=== PATIENT | female | born 1980 | race American Indian/Alaskan Native ===

== ENCOUNTER 2020-02-06 16:47 | Emergency (ER) | payer MEDICAID ==
[2020-02-06 17:21] VITALS: BP 139/90
[2020-02-06] MEDS ORDERED: KETOROLAC 60 MG/2 ML INJ IM STA (19:40)
--- NOTE | 2020-02-06 19:48 | Emergency Department Report ---
ED ENT HPI - General Chief complaint: Dental/Oral Stated complaint: TOOTHACHE Time Seen by Provider: 02/06/20 19:36 Source: patient Mode of arrival: Ambulatory Limitations: No Limitations - History of Present Illness MD complaint: tooth pain -: Gradual Severity: moderate Quality: dull Improves with: none Worsens with: none Context- Dental: history of dental caries, poor dental care Associated Symptoms: toothache - Related Data Previous Rx's Medication Instructions Recorded Last Taken Type Acetaminophen/Codeine [Tylenol 1 tab PO Q6H PRN #12 tab 08/31/19 Unknown Rx /Codeine # 3 tab] Amoxicillin/Potassium Clav 1 each PO Q12H #20 tablet 08/31/19 Unknown Rx [Augmentin 875-125 Tablet] Ketorolac [Toradol] 10 mg PO Q8H PRN #20 tablet 08/31/19 Unknown Rx Naproxen [Naprosyn TAB] 500 mg PO BID #20 tablet 01/18/20 Unknown Rx Penicillin V Potassium 500 mg PO Q6HR #40 tablet 01/18/20 Unknown Rx Amoxicillin [Amoxicillin TAB] 875 mg PO BID #20 tablet 02/06/20 Unknown Rx Chlorhexidine Mouthwash [Peridex] 15 ml MM BID #1 bottle 02/06/20 Unknown Rx Ketorolac [Toradol] 10 mg PO Q6H PRN #15 tablet 02/06/20 Unknown Rx Lidocaine Viscous 2% 5 ml MM Q3H PRN #120 udc 02/06/20 Unknown Rx Allergies Allergy/AdvReac Type Severity Reaction Status Date / Time No Known Allergies Allergy Verified 01/18/20 11:14 ED Dental HPI - General Chief complaint: Dental/Oral Stated complaint: TOOTHACHE Time Seen by Provider: 02/06/20 19:36 Source: patient Mode of arrival: Ambulatory Limitations: No Limitations - Related Data Previous Rx's Medication Instructions Recorded Last Taken Type Acetaminophen/Codeine [Tylenol 1 tab PO Q6H PRN #12 tab 08/31/19 Unknown Rx /Codeine # 3 tab] Amoxicillin/Potassium Clav 1 each PO Q12H #20 tablet 08/31/19 Unknown Rx [Augmentin 875-125 Tablet] Ketorolac [Toradol] 10 mg PO Q8H PRN #20 tablet 08/31/19 Unknown Rx Naproxen [Naprosyn TAB] 500 mg PO BID #20 tablet 01/18/20 Unknown Rx Penicillin V Potassium 500 mg PO Q6HR #40 tablet 01/18/20 Unknown Rx Amoxicillin [Amoxicillin TAB] 875 mg PO BID #20 tablet 02/06/20 Unknown Rx Chlorhexidine Mouthwash [Peridex] 15 ml MM BID #1 bottle 02/06/20 Unknown Rx Ketorolac [Toradol] 10 mg PO Q6H PRN #15 tablet 02/06/20 Unknown Rx Lidocaine Viscous 2% 5 ml MM Q3H PRN #120 udc 02/06/20 Unknown Rx Allergies Allergy/AdvReac Type Severity Reaction Status Date / Time No Known Allergies Allergy Verified 01/18/20 11:14 ED Review of Systems ROS: Stated complaint: TOOTHACHE Other details as noted in HPI Comment: All other systems reviewed and negative ED Past Medical Hx - Past Medical History Previous Medical History?: No - Surgical History Past Surgical History?: No - Social History Smoking Status: Never Smoker - Medications Home Medications: Home Medications Medication Instructions Recorded Confirmed Last Taken Type Acetaminophen/Codeine [Tylenol 1 tab PO Q6H PRN #12 tab 08/31/19 Unknown Rx /Codeine # 3 tab] Amoxicillin/Potassium Clav 1 each PO Q12H #20 tablet 08/31/19 Unknown Rx [Augmentin 875-125 Tablet] Ketorolac [Toradol] 10 mg PO Q8H PRN #20 tablet 08/31/19 Unknown Rx Naproxen [Naprosyn TAB] 500 mg PO BID #20 tablet 01/18/20 Unknown Rx Penicillin V Potassium 500 mg PO Q6HR #40 tablet 01/18/20 Unknown Rx Amoxicillin [Amoxicillin TAB] 875 mg PO BID #20 tablet 02/06/20 Unknown Rx Chlorhexidine Mouthwash [Peridex] 15 ml MM BID #1 bottle 02/06/20 Unknown Rx Ketorolac [Toradol] 10 mg PO Q6H PRN #15 tablet 02/06/20 Unknown Rx Lidocaine Viscous 2% 5 ml MM Q3H PRN #120 udc 02/06/20 Unknown Rx ED Physical Exam - General Limitations: No Limitations General appearance: alert, in no apparent distress - Head Head exam: Present: atraumatic, normocephalic - Eye Eye exam: Present: normal appearance - ENT ENT exam: Present: mucous membranes moist, other (Tenderness to the lower dentition around tooth #29 and 30 with moderate dental caries and some adjacent gingival erythema and mild swelling. Tongue and uvula are midline airways patent. No exudate noted.) - Neck Neck exam: Present: normal inspection - Respiratory Respiratory exam: Present: normal lung sounds bilaterally. Absent: respiratory distress - Cardiovascular Cardiovascular Exam: Present: regular rate, normal rhythm. Absent: systolic murmur, diastolic murmur, rubs, gallop - GI/Abdominal GI/Abdominal exam: Present: soft, normal bowel sounds - Extremities Exam Extremities exam: Present: normal inspection - Back Exam Back exam: Present: normal inspection - Neurological Exam Neurological exam: Present: alert, oriented X3 - Psychiatric Psychiatric exam: Present: normal affect, normal mood - Skin Skin exam: Present: warm, dry, intact, normal color. Absent: rash ED Course Vital Signs 02/06/20 17:20 Temperature 98.5 F Pulse Rate 82 Respiratory 20 Rate Blood Pressure 139/90 O2 Sat by Pulse 100 Oximetry ED Medical Decision Making - Medical Decision Making 39-year-old female with an evolving dental infection secondary to an infected dental carry. Plan is to treat with antimicrobial mouthwash and analgesic medication control. Critical care attestation.: If time is entered above; I have spent that time in minutes in the direct care of this critically ill patient, excluding procedure time. ED Disposition Clinical Impression: Infected dental carries Disposition: DC-01 TO HOME OR SELFCARE Is pt being admited?: No Does the pt Need Aspirin: No Condition: Stable Instructions: Toothache (ED), Dental Caries (ED), Dental Abscess (ED) Referrals: PRIMARY CARE, [Primary Care Provider] - 3-5 Days [facility] [Outside] - 3-5 Days
== END 2020-02-06 20:08 | disposition home or self-care (01) ==
LOC: ED 16:47
DX: K02.9 Dental caries, unspecified (principal); Z79.899 Other long term (current) drug therapy
CPT/HCPCS: 96372; 99282; J1885

== ENCOUNTER 2021-02-15 10:14 | Emergency (ER) | payer MEDICAID ==
[2021-02-15 10:33] VITALS: BP 132/82
--- NOTE | 2021-02-15 10:51 | Emergency Department Report ---
ED ENT HPI - General Chief complaint: Dental/Oral Stated complaint: RT EAR/THROAT PAIN Time Seen by Provider: 02/15/21 10:37 Source: patient Mode of arrival: Ambulatory Limitations: No Limitations - History of Present Illness Initial comments: Is a pleasant 40-year-old female presents the emergency department chief complaint of sore throat and right ear pain over the past 3 days. She reports she has been gargling with salt water and taking [id number] anti- inflammatories with only minimal relief of her symptoms. She denies any associated fever, chills, night sweats, headache, dizziness, or vision, nausea,, diarrhea, chest pain or shortness of breath, weakness or any other associated symptoms. She reports that the pain is aggravated by swallowing and chewing. - Related Data Previous Rx's Medication Instructions Recorded Last Taken Type Acetaminophen/Codeine [Tylenol 1 tab PO Q6H PRN #12 tab 08/31/19 Unknown Rx /Codeine # 3 tab] Amoxicillin/Potassium Clav 1 each PO Q12H #20 tablet 08/31/19 Unknown Rx [Augmentin 875-125 Tablet] Ketorolac [Toradol] 10 mg PO Q8H PRN #20 tablet 08/31/19 Unknown Rx Naproxen [Naprosyn TAB] 500 mg PO BID #20 tablet 01/18/20 Unknown Rx Penicillin V Potassium 500 mg PO Q6HR #40 tablet 01/18/20 Unknown Rx Amoxicillin [Amoxicillin TAB] 875 mg PO BID #20 tablet 02/06/20 Unknown Rx Chlorhexidine Mouthwash [Peridex] 15 ml MM BID #1 bottle 02/06/20 Unknown Rx Ketorolac [Toradol] 10 mg PO Q6H PRN #15 tablet 02/06/20 Unknown Rx Lidocaine Viscous 2% 5 ml MM Q3H PRN #120 udc 02/06/20 Unknown Rx Acetaminophen with Codeine 1 each PO Q6HR #12 tablet 02/15/21 Unknown Rx [Acetaminophen-Codeine #4 TAB] Clindamycin [Clindamycin CAP] 300 mg PO Q6H #30 capsule 02/15/21 Unknown Rx Nystas/Diphen/Xyl Visc/Mylanta 30 ml MM Q4H PRN #120 ml 02/15/21 Unknown Rx [Magic Mouthwash] methylPREDNISolone [Medrol 4MG 4 mg PO ONCE #1 tab.ds.pk 02/15/21 Unknown Rx DOSEPAK (21 tabs)] Allergies Allergy/AdvReac Type Severity Reaction Status Date / Time No Known Allergies Allergy Verified 02/15/21 10:31 ED Dental HPI - General Chief complaint: Dental/Oral Stated complaint: RT EAR/THROAT PAIN Time Seen by Provider: 02/15/21 10:37 Source: patient Mode of arrival: Ambulatory Limitations: No Limitations - Related Data Previous Rx's Medication Instructions Recorded Last Taken Type Acetaminophen/Codeine [Tylenol 1 tab PO Q6H PRN #12 tab 08/31/19 Unknown Rx /Codeine # 3 tab] Amoxicillin/Potassium Clav 1 each PO Q12H #20 tablet 08/31/19 Unknown Rx [Augmentin 875-125 Tablet] Ketorolac [Toradol] 10 mg PO Q8H PRN #20 tablet 08/31/19 Unknown Rx Naproxen [Naprosyn TAB] 500 mg PO BID #20 tablet 01/18/20 Unknown Rx Penicillin V Potassium 500 mg PO Q6HR #40 tablet 01/18/20 Unknown Rx Amoxicillin [Amoxicillin TAB] 875 mg PO BID #20 tablet 02/06/20 Unknown Rx Chlorhexidine Mouthwash [Peridex] 15 ml MM BID #1 bottle 02/06/20 Unknown Rx Ketorolac [Toradol] 10 mg PO Q6H PRN #15 tablet 02/06/20 Unknown Rx Lidocaine Viscous 2% 5 ml MM Q3H PRN #120 udc 02/06/20 Unknown Rx Acetaminophen with Codeine 1 each PO Q6HR #12 tablet 02/15/21 Unknown Rx [Acetaminophen-Codeine #4 TAB] Clindamycin [Clindamycin CAP] 300 mg PO Q6H #30 capsule 02/15/21 Unknown Rx Nystas/Diphen/Xyl Visc/Mylanta 30 ml MM Q4H PRN #120 ml 02/15/21 Unknown Rx [Magic Mouthwash] methylPREDNISolone [Medrol 4MG 4 mg PO ONCE #1 tab.ds.pk 02/15/21 Unknown Rx DOSEPAK (21 tabs)] Allergies Allergy/AdvReac Type Severity Reaction Status Date / Time No Known Allergies Allergy Verified 02/15/21 10:31 ED Review of Systems ROS: Stated complaint: RT EAR/THROAT PAIN Other details as noted in HPI Comment: All other systems reviewed and negative Constitutional: denies: chills, fever Eyes: denies: eye pain, eye discharge, vision change ENT: as per HPI, ear pain, throat pain Respiratory: denies: cough, shortness of breath, wheezing Cardiovascular: denies: chest pain, palpitations Endocrine: no symptoms reported Gastrointestinal: denies: abdominal pain, nausea, diarrhea Genitourinary: denies: urgency, dysuria, discharge Musculoskeletal: denies: back pain, joint swelling, arthralgia Skin: denies: rash, lesions Neurological: denies: headache, weakness, paresthesias Psychiatric: denies: anxiety, depression Hematological/Lymphatic: denies: easy bleeding, easy bruising ED Past Medical Hx - Past Medical History Previous Medical History?: No - Surgical History Past Surgical History?: No - Social History Smoking Status: Never Smoker - Medications Home Medications: Home Medications Medication Instructions Recorded Confirmed Last Taken Type Acetaminophen/Codeine [Tylenol 1 tab PO Q6H PRN #12 tab 08/31/19 Unknown Rx /Codeine # 3 tab] Amoxicillin/Potassium Clav 1 each PO Q12H #20 tablet 08/31/19 Unknown Rx [Augmentin 875-125 Tablet] Ketorolac [Toradol] 10 mg PO Q8H PRN #20 tablet 08/31/19 Unknown Rx Naproxen [Naprosyn TAB] 500 mg PO BID #20 tablet 01/18/20 Unknown Rx Penicillin V Potassium 500 mg PO Q6HR #40 tablet 01/18/20 Unknown Rx Amoxicillin [Amoxicillin TAB] 875 mg PO BID #20 tablet 02/06/20 Unknown Rx Chlorhexidine Mouthwash [Peridex] 15 ml MM BID #1 bottle 02/06/20 Unknown Rx Ketorolac [Toradol] 10 mg PO Q6H PRN #15 tablet 02/06/20 Unknown Rx Lidocaine Viscous 2% 5 ml MM Q3H PRN #120 udc 02/06/20 Unknown Rx Acetaminophen with Codeine 1 each PO Q6HR #12 tablet 02/15/21 Unknown Rx [Acetaminophen-Codeine #4 TAB] Clindamycin [Clindamycin CAP] 300 mg PO Q6H #30 capsule 02/15/21 Unknown Rx Nystas/Diphen/Xyl Visc/Mylanta 30 ml MM Q4H PRN #120 ml 02/15/21 Unknown Rx [Magic Mouthwash] methylPREDNISolone [Medrol 4MG 4 mg PO ONCE #1 tab.ds.pk 02/15/21 Unknown Rx DOSEPAK (21 tabs)] ED Physical Exam - General Limitations: No Limitations General appearance: alert, in no apparent distress - Head Head exam: Present: atraumatic, normocephalic - Eye Eye exam: Present: normal appearance, PERRL, EOMI Pupils: Present: normal accommodation - ENT ENT exam: Present: normal exam, mucous membranes moist, other (There is bilateral tonsillar enlargement with erythema with slight prominence of the right tonsil with no peritonsillar bulging, retropharyngeal bulging or to elevation. No trismus. No drooling or dysphonia. The right tympanic membrane has a purulent effusion with mild erythema of the tympanic me). Absent: normal orophraynx (No submandibular swelling or tongue elevation) - Neck Neck exam: Present: normal inspection, full ROM. Absent: tenderness, me ningismus - Respiratory Respiratory exam: Present: normal lung sounds bilaterally. Absent: respiratory distress, wheezes, rales, rhonchi, stridor - Cardiovascular Cardiovascular Exam: Present: regular rate, normal rhythm, normal heart sounds. Absent: systolic murmur, diastolic murmur, rubs, gallop - GI/Abdominal GI/Abdominal exam: Present: soft, normal bowel sounds. Absent: distended, tenderness, guarding, rebound, rigid - Extremities Exam Extremities exam: Present: normal inspection, full ROM, normal capillary refill. Absent: tenderness, calf tenderness - Back Exam Back exam: Present: normal inspection, full ROM. Absent: tenderness, CVA tenderness (R), CVA tenderness (L) - Neurological Exam Neurological exam: Present: alert, oriented X3, normal gait - Psychiatric Psychiatric exam: Present: normal affect, normal mood - Skin Skin exam: Present: warm, dry, intact, normal color. Absent: rash ED Course Vital Signs 02/15/21 10:28 Temperature 97.9 F Pulse Rate 73 Respiratory 18 Rate Blood Pressure 132/82 O2 Sat by Pulse 100 Oximetry - Reevaluation(s) Reevaluation #1: 02/15/21 10:47 Had a lengthy discussion with the patient regarding her unilateral throat pain and that she does have slight prominence of the right tonsil although I do not see any evidence of peritonsillar bulging, retropharyngeal bulging or to elevation to suggest a peritonsillar abscess, retropharyngeal abscess or Deshaun's angina. Did educate her about the signs and symptoms of a peritonsillar abscess including dysphonia, drooling, unilateral swelling of the throat to return to the emergency department medially. I will treat her more aggressively with clindamycin, Medrol Dosepak and Magic mouthwash and pain medication and recommended she return the emerge department me if she develops any of the above symptoms. She verbalized understand these instructions and all of her questions were answered. ED Medical Decision Making - Differential Diagnosis Strep throat, mononucleosis, otitis media, V GRO[employer]TER Critical care attestation.: If time is entered above; I have spent that time in minutes in the direct care of this critically ill patient, excluding procedure time. ED Disposition Clinical Impression: Acute tonsillitis Qualifiers: Pharyngitis/tonsillitis etiology: unspecified etiology Qualified Code(s): J03.90 - Acute tonsillitis, unspecified Acute otitis media Qualifiers: Otitis media type: suppurative Laterality: right Recurrence: not specified as recurrent Spontaneous tympanic membrane rupture: without spontaneous rupture Qualified Code(s): H66.001 - Acute suppurative otitis media without spontaneous rupture of ear drum, right ear Disposition: 01 HOME / SELF CARE / HOMELESS Is pt being admited?: No Condition: Stable Prescriptions: Acetaminophen with Codeine [Acetaminophen-Codeine #4 TAB] 1 each PO Q6HR #12 tablet Clindamycin [Clindamycin CAP] 300 mg PO Q6H #30 capsule Nystas/Diphen/Xyl Visc/Mylanta [Magic Mouthwash] 30 ml MM Q4H PRN #120 ml PRN Reason: Throat Pain methylPREDNISolone [Medrol 4MG DOSEPAK (21 tabs)] 4 mg PO ONCE #1 tab.ds.pk Referrals: ANNETTE CLARK MD [Referring] - 3-5 Days Forms: Work/School Release Form(ED) Time of Disposition: 10:48
== END 2021-02-15 11:08 | disposition home or self-care (01) ==
LOC: ED 10:14
DX: J03.90 Acute tonsillitis, unspecified (principal); H66.91 Otitis media, unspecified, right ear
CPT/HCPCS: 99282